=== PATIENT | male | born 1985 | race Caucasian/White ===

== ENCOUNTER 2020-07-08 04:46 | Emergency (ER) | payer MEDICAID ==
[2020-07-08] MEDS ORDERED: Ketorolac 60 MG/2 ML SDV IM ONE (05:09)
--- NOTE | 2020-07-08 06:18 | EDM.PDOC ---
ED HPI GENERAL MEDICAL PROBLEM - General Chief Complaint: General Stated Complaint: SOB Time Seen by Provider: 07/08/20 04:55 Source of Information: Reports: Patient History Limitations: Reports: No Limitations - History of Present Illness INITIAL COMMENTS - FREE TEXT/NARRATIVE: Patient presented to the ED because of pleuritic chest pain and dyspnea for 4 days. He has a chronic cough due to smoking. denies any fever,chills or exposure to Covid. bilat rib Pain Score (Numeric/FACES): 7 - Related Data Allergies Allergy/AdvReac Type Severity Reaction Status Date / Time paroxetine [From Paxil] Allergy Seizure Verified 07/08/20 05:01 Home Meds: Home Meds Albuterol Sulfate [Albuterol Sulfate Hfa] 2 inh IH Q4H PRN #1 [email or web address] 07/08/20 [Rx] predniSONE [Prednisone] 40 mg PO DAILY #10 tablet 07/08/20 [Rx] Past Medical History Neurological History: Reports: Seizure Other Neuro History: seizure/side effect w/paxil Psychiatric History: Reports: Anxiety, Depression, Suicide Attempt, Suicidal Ideation - Past Surgical History HEENT Surgical History: Reports: None Neurological Surgical History: Reports: None Social & Family History - Tobacco Use Tobacco Use Status *Q: Current Every Day Tobacco User Years of Tobacco use: 1 Packs/Tins Daily: 1 - Caffeine Use Caffeine Use: Reports: Soda Caffeine Use Comment: 2/day - Recreational Drug Use Recreational Drug Use: Yes Drug Use in Last 12 Months: No ED ROS GENERAL - Review of Systems Review Of Systems: See Below Constitutional: Reports: No Symptoms HEENT: Reports: No Symptoms Respiratory: Reports: No Symptoms Cardiovascular: Reports: Chest Pain Endocrine: Reports: No Symptoms GI/Abdominal: Reports: No Symptoms : Reports: No Symptoms Musculoskeletal: Reports: No Symptoms Skin: Reports: No Symptoms Neurological: Reports: No Symptoms ED EXAM, GENERAL - Physical Exam Exam: See Below Exam Limited By: No Limitations General Appearance: Alert, No Apparent Distress Ears: Normal External Exam, Normal Canal Nose: Normal Inspection, Normal Mucosa Throat/Mouth: Normal Inspection, Normal Lips Head: Atraumatic, Normocephalic Neck: Normal Inspection, Supple, Non-Tender, Full Range of Motion Respiratory/Chest: No Respiratory Distress, Lungs Clear, Normal Breath Sounds Cardiovascular: Normal Peripheral Pulses, Regular Rate, Rhythm, No Edema, No Gallop GI/Abdominal: Normal Bowel Sounds, Soft, Non-Tender, No Organomegaly Back Exam: Normal Inspection, Full Range of Motion Extremities: Normal Inspection, Normal Range of Motion, Non-Tender Course - Vital Signs Text/Narrative:: CXR-neg for infiltrates Toradol 60 mg IM x1 Last Recorded V/S: Last Vital Signs Temp 36.7 C 07/08/20 04:50 Pulse 86 07/08/20 04:50 Resp 18 07/08/20 04:50 BP 133/89 07/08/20 04:50 Pulse Ox 99 07/08/20 04:50 - Orders/Labs/Meds Orders: Active Orders 24 hr Category Date Time Status Chest 2V [CR] Stat Exams 07/08/20 05:54 Taken Meds: Medications Discontinued Medications Generic Name Dose Route Start Last Admin Trade Name Freq PRN Reason Stop Dose Admin Ketorolac Tromethamine 60 mg 07/08/20 05:09 07/08/20 05:13 Toradol IM 07/08/20 05:10 60 mg ONETIME ONE Administration Departure - Departure Time of Disposition: 06:30 Disposition: Home, Self-Care 01 Condition: Good Clinical Impression: Pleurisy - Discharge Information Prescriptions: Albuterol Sulfate [Albuterol Sulfate Hfa] 2 inh IH Q4H PRN #1 hfa.aer.ad PRN Reason: Dyspnea predniSONE [Prednisone] 40 mg PO DAILY #10 tablet Instructions: Pleurisy, [id number] Referrals: PCP,None [Primary Care Provider] - Forms: ED Department Discharge Additional Instructions: Please read discharge instructions on pleurisy Try to quit smoking while being treated prednisone 20, 2 tablets daily for 5 days Albuterol inhaler, 2 puffs every 4-6 hours as needed for shortness of breath and wheezing Follow up if symptoms persist Sepsis Event Note (ED) - Evaluation Sepsis Screening Result: No Definite Risk - Focused Exam Vital Signs: Vital Signs Temp Pulse Resp BP Pulse Ox 07/08/20 04:50 36.7 C 86 18 133/89 99 - My Orders Last 24 Hours: My Active Orders 07/08/20 05:54 Chest 2V [CR] Stat - Assessment/Plan Last 24 Hours: My Active Orders 07/08/20 05:54 Chest 2V [CR] Stat
--- NOTE | 2020-07-08 11:02 | CR ---
INDICATION: Rib pain. CHEST TWO VIEWS: Two PA views and a lateral view of the chest were obtained 07/08/20 - no comparisons. Mildly prominent AP diameter, minimally flattened diaphragm leaves and some interdigitation of diaphragm leaves raises question of obstructive airway disease - correlate clinically. Heart, mediastinum and bony thorax were unremarkable. An active infiltrate or effusion was not identified. IMPRESSION: No definite acute process. If occult rib fracture is suspected clinically, reexamination in 10-14 days and/or rib x-rays may be helpful. MTDD
== END 2020-07-08 06:29 | disposition home or self-care (01) ==
LOC: FB.ED 04:46
DX: R09.1 Pleurisy (principal); F17.200 Nicotine dependence, unspecified, uncomplicated; Z88.8 Allergy status to other drugs, medicaments and biological substances
CPT/HCPCS: 71046; 96372; 99284; 99284-25; J1885